=== PATIENT | male | born 1995 | race American Indian/Alaskan Native ===

== ENCOUNTER 2017-07-15 04:58 | Emergency (ER) | payer OTHER ==
[2017-07-15 05:28] VITALS: BP 139/70
--- NOTE | 2017-07-15 06:46 | Ultrasound Report ---
FINAL REPORT EXAM: US TESTICULAR DOPPLER COMP HISTORY: testiclar pain ? blood flow TECHNIQUE: Routine sonographic evaluation was obtained of the scrotum with Doppler interrogation of both testicles. FINDINGS: Both testicles are normal in size contour blood flow and echotexture. The right testicle measures 4.5 cm x 2.3 cm x 3 cm. The left testicle measures 4.2 cm x 1.9 cm x 2.2 cm. The epididymi appear normal bilaterally. There is no evidence of hydrocele or varicocele. IMPRESSION: Normal exam. No evidence of testicular neoplasia or torsion.
[2017-07-15 07:37] LABS: Bilirubin,Urine NEG (Negative); Blood,Urine NEG (Negative); Color,Urine Straw (Yellow); Mucus,Urine FEW /HPF; Protein,Urine <15 mg/dL mg/dL (Negative); RBC,Urine < 1.0 /HPF (0.0-6.0); Urobilinogen,Urine < 2.0 mg/dL (<2.0); WBC,Urine < 1.0 /HPF (0.0-6.0)
[2017-07-15] MEDS ORDERED: ROCEPHIN IM ONE (09:15)
[2017-07-15] MEDS ORDERED: XYLOCAINE 1% MPF 5 mL INFILTRATI ONE (09:15)
[2017-07-15] MEDS ORDERED: ZITHROMAX PO ONE (09:15)
--- NOTE | 2017-07-15 09:20 | Emergency Department Report ---
ED Male HPI - General Chief complaint: Urogenital-Male Stated complaint: LT TESTICLE PAIN Time Seen by Provider: 07/15/17 08:54 Source: patient Mode of arrival: Ambulatory Limitations: No Limitations - History of Present Illness Initial comments: This is a 21-year-old male nontoxic, well nourished in appearance, no acute signs of distress presents to the ED with c/o of left testicle pain x3 days. Patient describes pain as aching intermittently. Patient denies any radiation of pain. Patient denies any trauma. Patient denies any testicular swelling, penile ulcers, or lesions. Patient denies any penile discharge. Patient denies any urinary symptoms. Patient denies any fever, chills, nausea, vomiting , chest pain, short of breath, abdominal pain, back pain, stiff neck or headache. Patient denies any allergies or past medical history. MD Complaint: groin pain -: days(s) (3) Location: left testicle Radiation: none Severity: mild Severity scale (0 -10): 8 Quality: aching Consistency: intermittent Improves with: none Worsens with: none denies other symptoms. denies: discharge, swelling, mass, rash, urinary retention, blood in urine, dysuria, fever, nausea/vomiting, incontinence - Related Data Previous Rx's Medication Instructions Recorded Last Taken Type Ibuprofen [Motrin] 600 mg PO Q8H PRN #30 tablet 07/15/17 Unknown Rx Allergies Allergy/AdvReac Type Severity Reaction Status Date / Time No Known Allergies Allergy Unverified 07/15/17 05:28 ED Review of Systems ROS: Stated complaint: LT TESTICLE PAIN Other details as noted in HPI Constitutional: denies: chills, fever Eyes: denies: eye pain, eye discharge, vision change ENT: denies: ear pain, throat pain Respiratory: denies: cough, shortness of breath, wheezing Cardiovascular: denies: chest pain, palpitations Endocrine: no symptoms reported Gastrointestinal: denies: abdominal pain, nausea, diarrhea Genitourinary: denies: urgency, dysuria Musculoskeletal: denies: back pain, joint swelling, arthralgia Skin: denies: rash, lesions Neurological: denies: headache, weakness, paresthesias Psychiatric: denies: anxiety, depression Hematological/Lymphatic: denies: easy bleeding, easy bruising ED Past Medical Hx - Past Medical History Previous Medical History?: No - Surgical History Past Surgical History?: No - Social History Smoking Status: Never Smoker Substance Use Type: None - Medications Home Medications: Home Medications Medication Instructions Recorded Confirmed Last Taken Type Ibuprofen [Motrin] 600 mg PO Q8H PRN #30 tablet 07/15/17 Unknown Rx ED Physical Exam - General Limitations: No Limitations General appearance: alert, in no apparent distress - Head Head exam: Present: atraumatic, normocephalic - Eye Eye exam: Present: normal appearance Pupils: Present: normal accommodation - ENT ENT exam: Present: normal exam, mucous membranes moist - Neck Neck exam: Present: normal inspection, full ROM. Absent: tenderness, meningismus, lymphadenopathy - Respiratory Respiratory exam: Present: normal lung sounds bilaterally. Absent: respiratory distress, wheezes, rales, rhonchi, stridor, chest wall tenderness, accessory muscle use, decreased breath sounds, prolonged expiratory - Cardiovascular Cardiovascular Exam: Present: regular rate, normal rhythm, normal heart sounds. Absent: bradycardia, tachycardia, irregular rhythm, systolic murmur, diastolic murmur, rubs, gallop - GI/Abdominal GI/Abdominal exam: Present: soft, normal bowel sounds. Absent: distended, tenderness, guarding, rebound, rigid, diminished bowel sounds - Rectal Rectal exam: Present: deferred - exam: Present: normal inspection, testicular tenderness. Absent: urethral discharge, scrotal swelling, vertical testicular lie, circumcision External exam: Present: normal external exam. Absent: erythema, swelling, lesions, lacerations, ecchymosis, bleeding - Extremities Exam Extremities exam: Present: normal inspection, full ROM, normal capillary refill - Back Exam Back exam: Present: normal inspection, full ROM - Neurological Exam Neurological exam: Present: alert, oriented X3, normal gait - Psychiatric Psychiatric exam: Present: normal affect, normal mood - Skin Skin exam: Present: warm, dry, intact, normal color. Absent: rash - Other Other exam information: normal Cremasteric reflex testing for both testicular ED Course Vital Signs 07/15/17 05:25 Temperature 98.8 F Pulse Rate 74 Respiratory 17 Rate Blood Pressure 139/70 O2 Sat by Pulse 99 Oximetry - Reevaluation(s) Reevaluation #1: 07/15/17 09:19 Patient is speaking in full sentences with no signs of distress noted. ED Medical Decision Making - Medical Decision Making This is a 21-year-old male that presents with left testicular pain. Patient is stable and was examined by me. Ua obtained. Urine culture pending. Patient received Rocephine and Azithromycin empirically as this may be related to STD. A Doppler testicular ultrasound has been obtained and dictated by a radiologist within normal limits. Normal Cremasteric reflex testing. Patient was referred to Follow-up with a primary care doctor in 3-5 days or if symptoms worsen and continue return to emergency room as soon as possible. At time of discharge, the patient does not seem toxic or ill in appearance. No acute signs of distress noted. Patient agrees to discharge treatment plan of care. No further questions noted by the patient. Critical care attestation.: If time is entered above; I have spent that time in minutes in the direct care of this critically ill patient, excluding procedure time. ED Disposition Clinical Impression: Left testicular pain Disposition: DC-01 TO HOME OR SELFCARE Is pt being admited?: No Does the pt Need Aspirin: No Condition: Stable Instructions: Testicle Pain (ED) Additional Instructions: Follow-up with a primary care doctor in 3-5 days or if symptoms worsen and continue return to emergency room as soon as possible. Prescriptions: Ibuprofen [Motrin] 600 mg PO Q8H PRN #30 tablet PRN Reason: Pain Referrals: PRIMARY CAREMD [Primary Care Provider] - 3-5 Days MYKE MACHADO MD [Staff Physician] - 3-5 Days [facility] [Outside] - 3-5 Days [facility] [Outside] - 3-5 Days Forms: Work/School Release Form(ED)
== END 2017-07-15 09:50 | disposition home or self-care (01) ==
LOC: ED 04:58
DX: N50.812 Left testicular pain (principal)
CPT/HCPCS: 81001; 87086; 93975; 96372; 99284; J0696